=== PATIENT | male | born 1950 | race Caucasian/White ===

== ENCOUNTER 2016-11-07 14:47 | Observation (INO) | payer MEDICARE ==
[~2016-11-07] VITALS: Ht 185.4 cm; Wt 83.4 kg
[~2016-11-07 14:47] MED LIST: AGM875T PO; ATOR10TA66 PO; HYDR-4003 PO; LAN125 PO; LEVA1.2523 NEB; LISI2.5T PO; LIT300 PO; METO25TA6 PO; NEBU-145 NEB; SYMINH INHALATION; TIOT18CA3 IH
[2016-11-07 14:51] VITALS: BP 164/99; PULSE 79; RESP 20; O2SAT 98
[2016-11-07 16:48] VITALS: BP 173/107; PULSE 54; RESP 20; O2SAT 98
--- NOTE | 2016-11-07 17:06 | DRSVH ---
PROCEDURE: CT BRAIN WITHOUT CONTRAST ([id number]) INDICATIONS: STROKE SYPTOMS FOR A WEEK TECHNIQUE: Noncontrast 4.5 mm thick angled axial sections acquired from the foramen magnum to the vertex, with c oronal reformats. COMPARISON: None. FINDINGS: Image quality: Excellent. CSF spaces: Basal cisterns are patent. No extra-axial fluid collections. Ventricles are normal in size and shape. Brain: No midline shift. No intracranial masses or hemorrhage. Jaquez-white matter interface is norm al. Skull and face: Calvarium and visualized facial bones are intact, without suspicious lesions. Sinuses: Visualized sinuses demonstrate ethmoid mucosal thickening. IMPRESSION: 1. No acute intracranial process. Dictated by: Marta Boykin M.D. on 11/07/2016 at 17:03 Approved by: Marta Boykin M.D. on 11/07/2016 at 17:04
[2016-11-07 17:27] LABS: BASOPHILS % (AUTO) 0.5 % (0-3); EOSINOPHILS % (AUTO) 1.2 % (0-5); MONOCYTES % (AUTO) 8.4 % (4-12); Mean Corpuscular Hemoglobin 32.3 pg (27.0-35.0); Mean Corpuscular Volume 93.1 fL (81-100); NEUTROPHILS % (AUTO) 68.8 % (40-74); Platelet Count 354 bil/L (150-400)
--- NOTE | 2016-11-07 17:42 | ED.REPORT ---
HPI-Stroke / CVA Nov 07, 2016 ED Provider: Karan Suresh MD History of Present Illness: OCC This is a 65 year old male with a history of COPD, HTN, bipolar disorder presenting to the emergency department from urgent care complaining of head pressure that began one month ago but worsened 2 days ago. Associated symptoms that began one month ago include bilateral tinnitus, episodic slurred speech, numbness and weakness is localized to left side face, upper, and lower extremities, causing balance issues resulting in a GLF yesterday. Describes gradually worsening headache and "pressure" in arms and legs. Denies recent trauma, fever, chills, change LOC, nausea, vomiting, or diaphoresis. Nursing Notes Stated Complaint: SPEECH CHANGE/HEAD NUMB Chief Complaint: Neuro Symptoms/ Deficits Nursing Notes Reviewed: Yes (ERPLY, [employer] not reconciled) Allergies: Coded Allergies: codeine (Verified Allergy, Intermediate, Nausea,Vomiting, 11/07/16) cortisone (Verified Allergy, Intermediate, Rash, 11/07/16) No Known Allergies (Verified Allergy, Unknown, 05/31/16) Scheduled Atorvastatin Calcium (Atorvastatin Calcium) 10 Mg Tablet 10 MG PO HS Budesonide/Formoterol 160-4.5 mcg Inh (Symbicort 160-4.5 mcg Inh) 60 Puff/6.9 Gm Inhaler 2 PUFF INHALATION BID Clindamycin (Clindamycin) 300 Mg Capsule 300 MG PO tid x 10 days (Reported) Digoxin (Digoxin) 250 Mcg Tablet 250 MCG PO DAILY (Reported) Lisinopril (Lisinopril) 2.5 Mg Tablet 2.5 MG PO DAILY Metoprolol Succinate ER (Metoprolol Succinate ER) 25 Mg Tab.er.24h 25 MG PO DAILY (Reported) Potassium Chloride (Potassium Chloride) 10 Meq Capsule.er 10 MEQ PO DAILY ( Reported) TAKE WITH FOOD Tiotropium Chamberlain (Spiriva) 18 Mcg Cap.w.dev 18 MCG IH DAILY (Reported) Scheduled PRN Albuterol Sulfate (Ventolin HFA Inhaler) 200 Puff/18 Gm Inhaler 2 PUFF INH Q4 PRN PRN For Shortness of Breath (Reported) Levalbuterol HCl (Xopenex Concentrate) 1.25 Mg/0.5 Ml Vial.neb 1.25 MG IH QID PRN PRN For Shortness of Breath (Reported) General Time Seen by Provider: 17:41 Chief Complaint Weakness Hx Obtained From: Patient Arrived By: Ambulance Time last known well - Sudden in Onset?: No Symptom Duration: More than a week... Progression Since Onset: Waxes and wanes, Resolved (not present at moment) Severity: Current: No pain currently Pertinent Negative: Pt denies other symptoms Recent Healthcare: No recent hospitalization, Recent doctor visit Similar Sx Previous: No Risk Factors )( TPA Administration/Criteria Stroke Thrombolytic Therapy : TPA Administered Intravenously: No, not indicated NIH Stroke Scale Level of Consciousness: Alert and responsive (0) Ask Month & Age: Both questions right (0) Open/Close Eyes/Hand [employer]: Performs both tasks (0) Horizontal EO Movements: None (0) Visual Wood: No visual loss (0) Facial Palsy: Normal symmetry (0) Right Arm Motor Drift (10s): No drift 10 sec (0) Left Arm Motor Drift (10s): No drift 10 sec (0) Right Leg Motor Drift (5s): No drift 5 sec (0) Left Leg Motor Drift (5s): No drift 5 sec (0) Limb Ataxia FNF/Heel-Campos: No ataxia (0) Sensation (Arms/Legs/Face): No sensory loss (0) Language Aphasia: No aphasia, normal (0) Dysarthria: No dysarthria, normal (0) Extinction/Inattention: No exctinct/inattent (0) NIHSS Score: 0 Time NIHSS Performed: 17:50 Date NIHSS Performed: Nov 07, 2016 Past Medical History Past Medical History 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, 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, status post AICD placement 2013, no valvular disease Severe persistent asthma Hypertension Allergic rhinitis ADHD Bipolar disorder History of severe sepsis due to Pseudomonas pneumonia History of ventricular fibrillation cardiac arrest in 2013 Anxiety Bipolar Disorder ho paroxysmal Atrial Fibrillation Reports: COPD, Hyperlipidemia Reports: Atrial fibrillation Past Surgical History AICD Family History Noncontributory Smoking History Former Smoker Social History Alcohol Use: In recovery Drug Use: Denies drug use Other Social History: Good social support, Local resident Ambulatory Status Independent Review of Systems Constitutional: Denies: Chills, Fever Respiratory: Denies: Non-productive cough Cardiovascular: Denies: Chest pain GI: Denies: Abdominal pain, Nausea, Vomiting Musculoskeletal: Denies: Back pain Neurologic: Reports: Headache, Numbness, Weakness, Denies: Change LOC, Lightheaded, Syncope Complete sys rev & neg: except as marked. Physical Exam Initial Vital Signs Vital Signs (First) Date Time Temp Pulse Resp B/P Pulse Ox O2 Delivery O2 Flow Rate FiO2 11/07/16 14:51 36.2 79 20 164/99 98 Room Air Initial VS: Reviewed, Vital signs abnormal (mod HTN) ENT: Mucous membranes moist, Conjunctiva normal, No scleral icterus Abdomen / GI: Soft, Non-tender, No guarding, No rebound, No distention Extremities: Vascular intact, Neuro intact, No swelling, No tenderness Skin: Warm, Dry, No cyanosis Psychiatric: Mood/affect normal, Behavior normal, Normal thought content General/Constitutional: Awake, Alert, No acute distress Behavior: Positive: Anxious Denies EtOH Head / Eyes: PERRL, EOMI Neck: Supple, Full range of motion, No swelling, Non-tender, No carotid bruit Respiratory / Chest: Breath sounds NL, Breath sounds = bilat, No respiratory distress, No rales, No rhonchi, No wheezing Cardiovascular: Heart rate NL, Regular rhythm, Heart sounds NL, No murmurs, Peripheral circulation NL Neurologic: Oriented X3, Speech NL, No motor deficits, No sensory deficits, CN II - XII intact, Reflexes equal bilat, Cerebellar NL Able to ambulate but other person present in the room states he has episodic speech deficits and ataxia, this is not witnessed at present. Interpretation & Diagnostics Interpretation & Diagnostics: HEAD CT IMPRESSION: 1. No acute intracranial process. Dictated by: Marta Boykin M.D. on 11/07/2016 at 17:03 Approved by: Marta Boykin M.D. on 11/07/2016 at 17:[address] ANGIOGRAPHY: Anterior circulation: Within the constraints of the study as discussed above no abnormality was seen but suboptimal visualization due to reduced contrast enhancement renders accurate diagnosis quite limited. Posterior circulation: Accuracy of visualization is limited by reduced degree of contrast enhancement. NECK CT ANGIOGRAPHY: IMPRESSION: As noted above the quality of visualization is quite limited, and accurate diagnosis for presence or absence of dissection also would be quite limited. Depending on the clinical status followup by either repeat CT angiogram or MR scanning may be warranted. Dictated by: Yasir Yu M.D. on 11/07/2016 at 21:52 Approved by: Yasir Yu M.D. on 11/07/2016 at 21:58 Lab Results Interpretation Result Diagram: 11/07/16 1518 11/07/16 1518 Test 11/07/16 15:18 White Blood Count 9.5th/mm3 (3.8-10.1) Red Blood Count 5.07mil/mm3 (4.40-5.80) Hemoglobin 16.4g/dL (13.8-17.2) Hematocrit 47.2% (41.0-50.0) Mean Corpuscular Volume 93.1fL (81-100) Mean Corpuscular Hemoglobin 32.3pg (27.0-35.0) Mean Corpuscular Hemoglobin Concent 34.7% (32.0-37.0) Red Cell Distribution Width 13.8% (12.3-15.4) Platelet Count 354bil/L (150-400) Neutrophils (%) (Auto) 68.8% (40-74) Lymphocytes (%) (Auto) 21.0% (14-46) Monocytes (%) (Auto) 8.4% (4-12) Eosinophils (%) (Auto) 1.2% (0-5) Basophils (%) (Auto) 0.5% (0-3) Prothrombin Time 11.3sec (8.1-12.5) Prothromb Time International Ratio 1.05ratio Activated Partial Thromboplast Time 28.2sec (22.8-33.0) Sodium Level 139mEq/L (134-144) Potassium Level 4.4mEq/L (3.5-5.2) Chloride Level 99mEq/L (97-108) Carbon Dioxide Level 23mmol/L (18-29) Blood Urea Nitrogen 7mg/dL (8-27) Creatinine 0.63mg/dL (0.76-1.27) Estimat Glomerular Filtration Rate 136mL/min (>59) Glucose Level 93mg/dL (60-99) Calcium Level 9.2mg/dL (8.5-10.1) Total Bilirubin 0.7mg/dL (0.0-1.2) Aspartate Amino Transf (AST/SGOT) 18U/L (0-50) Alanine Aminotransferase (ALT/SGPT) 9U/L (0-44) Alkaline Phosphatase 69U/L (25-160) Troponin T < 0.010ug/L (0.0-0.011) Total Protein 7.6g/dL (6.4-8.4) Albumin 4.6g/dL (3.4-5.0) Hold Vences Top Tube Received (Received) Digoxin Level 0.3nG/mL (0.9-2.0) [place] Level 0.1mEq/L (0.5-1.5) Lab Results Interpretation: CBC normal CMP normal ECG Interpretation ECG Interpretation: Sinus rhytjm with 1st degree heart block Q waves anteriorly Nonspecific t-wave inversions in V6 rate is improved since prior, no longer in a-fib/flutter Time: 18:23 Interpreted by: ED physician Re-Eval/Medical Decision Med Decision/Clinical Course This is a 65-year-old male who presents with a chief complaint of facial with difficulty with speech slurring of speech and word finding, as well as difficulty with gait and ambulation. He has a constellation of vague symptoms that he reports started several weeks ago, and included tenderness, a pressure headache, and just feeling poorly. He reports he seen several doctors and was told at one point that it was nothing and should resolve, but states that it did not-he was treated once with antibiotics, but did not improve. Sensitivity were super tonight complaining that over the past week that he has had significant problems intermittently with word finding and speech-as well as difficulties with ambulation. He is here with a second individual who confirms witnessing these episodes. On exam the patient's awake alert and appropriate. Out in a stroke scale testing I do not appreciate any difficulties with speech, and he passes all components of this language evaluation without difficulty. Additionally in the department, he has a negative Romberg, he is able to ambulate to heel to toe without overt findings. Her records indicate multiple risk factors-his last visit was for atrial fibrillation, he is not anticoagulated, but he is not currently in atrial fibrillation on the time of ED evaluation. He has also had a history of V. fib , cardiomyopathy with records indicating a significant component of alcohol, although reports she has been sober now for some time. He has a low EF. In other words the patient has multiple complex comorbidities which would increase the risk for potential stroke or embolism, and certainly describes a concerning story-even though his neurologic exam in the department has not clearly focal. Noncontrast head CT was negative. EKG revealed no dysrhythmia. Blood work was normal. I do not appreciate overt signs of evident bacterial infection, per records do indicate a history of dental infection, but the patient does not demonstrate clinical signs of an active infection, brain abscess, meningitis clinically I would think to be clearly evident if that was the cause is a traumatic focal left with deficits over such a period as a week. Due to the history of cardiomyopathy with ventricular fibrillation the patient has an AICD, he has a very low EF-and the AICD prohibits MRI imaging for further diagnostic evaluation. I discussed the case with the on-call neurologist and the plan is admission for continued stroke evaluation, with the plan to obtain a CT angiogram, as well as an echocardiogram as part of his evaluation. And neurology will see him tomorrow. The case is discussed with the hospitalist. Source of Hx: Old records Re-Evaluation/Progress : Time of Eval: 20:40 Re-Evaluation/Progress Note: Discussed need for admission, all questions addressed. Consultation #1: Referral / Consult Name: Sanjuana Galvan MD Consulted With: Neurology Call Returned at: 20:17 Mud Jack Operator: Will see patient, Agrees with eval, Agrees with plan Note: Recommends CTA and admit Consultation #2: Referral / Consult Name: Dedra Virgen DO Consulted With: Hospitalist Call Returned at: 20:50 Mud Jack Operator: Accepts admit Counseled Regarding: Diagnosis, Lab results, Need for follow-up, Need for admission Patient Discharge & Departure Impression: Primary Impression: CVA (cerebral vascular accident) CVA mechanism: unspecified Qualified Code: I63.9 - Cerebral infarction, unspecified Additional Impressions: Ataxia Transient neurological symptoms History of cardiomyopathy History of atrial fibrillation Disposition: ADMITTED TO HOSPITAL Discharge Condition All VS Reviewed: Yes Condition: Stable Referrals: Geovanny Jimenez DO (PCP) Scribe Attestation Portions of this note were transcribed by Eliane Madrid. I, Dr. Suresh personally performed the history, physical exam and medical decision-making; I reviewed and confirmed the accuracy of the information in the transcribed note. Signed by: lulu Robert. 11/07/2016, 23:30. Karan Suresh MD Nov 07, 2016 17:42 ELIANE MADRID Nov 07, 2016 17:43
[2016-11-07 17:47] LABS: INR 1.05 ratio
[2016-11-07 17:52] LABS: TROPONIN T < 0.010 ug/L (0.0-0.011)
[2016-11-07 19:52] VITALS: BP 130/87; PULSE 79; O2SAT 94
[2016-11-07] MEDS ORDERED: Ondansetron 2 mg/mL 2 mL Inj IV PRN (20:55)
[2016-11-07] MEDS ORDERED: Alum-Mag Hydrox-Simeth 30 mL Suspension PO PRN (20:55)
[2016-11-07] MEDS ORDERED: Polyethylene Glycol (PEG) 17 Gm Powder PO PRN (20:55)
[2016-11-07] MEDS ORDERED: DIGO250T72 PO (21:07)
[2016-11-07] MEDS ORDERED: CLIN-78 PO (21:07)
[2016-11-07] MEDS ORDERED: ALBU18HF INH (21:07)
[2016-11-07] MEDS ORDERED: POTA10CA42 PO (21:07)
[2016-11-07] MEDS ORDERED: METO25TA99 PO (21:07)
[2016-11-07] MEDS ORDERED: LEVA1.2523 IH (21:07)
[2016-11-07 21:42] VITALS: BP 146/78; PULSE 74; O2SAT 95
--- NOTE | 2016-11-07 21:58 | DRSVH ---
PROCEDURE: CT ANGIO HEAD AND NECK (P) INDICATIONS: CVA (requested by Tim) ro dissection TECHNIQUE: Pre-contrast 4.5 mm thick sections acquired from the foramen magnum to the vertex. After the adminis tration of intravenous contrast, 1 mm thick sections acquired from the aortic arch through the [place]. Post-contrast 4.5 mm thick sections then re-acquired from the foramen magnum to the vert ex. 3-dimensional dwskzga-lciyppdjh-owrtmjfygw (MIP) and/or volume rendering reformats were acquired of the central intracranial vasculature and neck separately. For radiation dose reduction, the foll owing was used: automated exposure control, adjustment of mA and/or kV according to patient size. COMPARISON: None. FINDINGS: Image quality: Very limited by suboptimal phase of contrast enhancement due to intravenous line extra vasation of contrast at the initiation of the study. This resulted in delay in acquisition and reduc ed degree of contrast enhancement.. BRAIN: CSF spaces: Ventricles are normal in size and shape. Basal cisterns are patent. No extra-axial flu id collections. Brain: No midline shift. No intracranial bleeds or masses. Jaquez-white matter interface appears int act. Skull and face: Calvarium and facial bones appear intact, without suspicious lesions. Orbits appear normal. Sinuses: Sinuses and mastoids are clear. HEAD CT ANGIOGRAPHY: Anterior circulation: Within the constraints of the study as discussed above no abnormality was seen but suboptimal visualization due to reduced contrast enhancement renders accurate diagnosis quite li mited. Posterior circulation: Accuracy of visualization is limited by reduced degree of contrast enhancemen t. NECK CT ANGIOGRAPHY: Carotid system: The great vessels demonstrate a conventional anatomy as they arise from the aortic a rch. The origins of the common carotid arteries appear patent. The common carotid arteries demonstr ate normal caliber and courses. The bifurcation regions are both widely patent. Quality of visualiz ation however is significantly limited as noted above. Accurate diagnosis of presence of dissection would be very limited in this study, in my opinion. Posterior circulation: The origins of the vertebral arteries both appear widely patent. The more mcneill perior extracranial portions of both vertebral arteries are poorly visualized as noted above. Accura te diagnosis of presence or absence of dissection is not possible. Soft tissues: Visualized neck soft tissues demonstrate no suspicious abnormalities. Bones: No suspicious bony lesions. Visualized cervical spine appears normally aligned. IMPRESSION: As noted above the quality of visualization is quite limited, and accurate diagnosis for presence or absence of dissection also would be quite limited. Depending on the clinical status foll owup by either repeat CT angiogram or MR scanning may be warranted. Dictated by: Ysair Yu M.D. on 11/07/2016 at 21:52 Approved by: Yasir Yu M.D. on 11/07/2016 at 21:58
[2016-11-07 22:25] VITALS: BP 132/82; PULSE 65; RESP 20; O2SAT 95
[2016-11-07 22:42] VITALS: PULSE 76
--- NOTE | 2016-11-07 23:10 | PCM.HPMED ---
Subjective Date of Service Nov 07, 2016 Primary Provider: Admitting Physician: Bret Berg DO Primary Care Physician: Geovanny Jimenez DO Attending Physician: Bret Berg DO Chief Complaint: Multiple neurologic symptoms History of Present Illness: Patient is a 65-year-old male with history of COPD, heart failure with reduced ejection fraction status post AICD (single-chamber, [employer]), and reported history of multiple tooth extraction about a month ago who presents to the ER with complaint of multiple neurological complaints. Patient reports that she was seen by dentist approximately one month ago for multiple teeth extractions. He is given a short course of antibiotic (does not recall the name) at that time. A week ago (10/31/16) he went to an urgent care clinic with complaint of numbness of his head jaw and sinus area. At that time he was given a prescription for clindamycin (10 day course). He notes that this is not significantly changed his symptoms. He was seen at urgent care again today for several day complaint of tingling in his hands and his feet, weakness and instability in his lower extremities, and feeling like his speech is slurred. In addition to that he continues to have this migrating numbness of the of the head and face for the last month. He also reports tinnitus for the last month (started out on the left, but is now bilateral). He denies headache, vision change, difficulty swallowing, chest pain, difficulty breathing. He reports some very minimal nausea. He ran out of digoxin a day or 2 ago, but reports that he has been compliant with all other medications. He reports history of finding ticks on his body. He reports that in January 2016 ( at that time he had his V. fib arrest) his daughter found a tick on his left lateral torso. He reports that a month or 2 later he found another tick on his skin. He denies any rash currently, or in the last many months (or at the time they found the tick). He denies any arthralgias. In the ER CT noncontrast of the head was negative, and a CT angiogram of the head and neck was grossly negative (but limited significantly by suboptimal contrast due to extravasation at the time of administration. His EKG shows sinus rhythm with a prolonged MS interval (first degree AV block). His labs are largely unremarkable. And his vital signs are fairly stable (with the exception of some hypertension). The patient takes aspirin 162 mg daily at baseline. Patient is admitted under observation status with expected length of stay less than 2 midnights due to severity of presenting symptoms, risk of adverse event, and complexity of treatment plan. Comprehensive review of systems conducted and was negative except for the pertinent positives listed in history of present illness above. Allergies Coded Allergies: codeine (Verified Allergy, Intermediate, Nausea,Vomiting, 11/07/16) cortisone (Verified Allergy, Intermediate, Rash, 11/07/16) No Known Allergies (Verified Allergy, Unknown, 05/31/16) Home Medications Gui Valerio. [id number] 1950 11/07/2016 02:15 PM 1/03/04/2016 atorvastatin 10 mg tablet take 1 tablet by oral route every day 10/31/2016 clindamycin 300 mg capsule take 1 capsule by oral route every 8 hours for 10 days 03/04/2016 digoxin 250 mcg tablet take 1 tablet by oral route every day 02/18/2016 levalbuterol 1.25 mg/0.5 mL solution for nebulization use 1.25 mg neb four times a day 03/04/2016 lisinopril 2.5 mg tablet take 1 tablet by oral route every day metoprolol succinate ER 25 mg tablet,extended release 24 hr take 1 tablet by oral route once a day potassium chloride ER 10 mEq capsule,extended release take 1 capsule by oral route every day with food 08/24/2016 Spiriva with HandiHaler 18 mcg and inhalation capsules INHALE THE CONTENTS OF 1 CAPSULE VIA HANDIHALER EVERY DAY 10/22/2015 Symbicort 160 mcg-4.5 mcg/actuation HFA aerosol inhaler inhale 2 puff by INHALATION route every day morning and evening 01/14/2016 Ventolin HFA 90 mcg/actuation aerosol inhaler inhale 2 puff by inhalation route every 4 - 6 hours as needed PMH Severe nonischemic myopathy, 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 Severe global hypokinesis. Severe LA enlargement; moderate RA enlargement. There is moderate central MR; Pacing lead is traversing the tricuspid valve; there is trace associated TR. Compared to prior study 05/19/2015 EF is less dynamic, down from 30-35% to 15-20% . LV is more dilated; end - diastolic dimension alfredo from 6 cm to 6.4 cm. Severe persistent asthma, question of COPD given his extensive smoking history, and current use Hypertension Allergic rhinitis ADHD Bipolar disorder History of severe sepsis due to Pseudomonas pneumonia History of ventricular fibrillation cardiac arrest in 2013 Tobacco dependence Surgical History AICD placement 2013 Family History Reports that his mom secondary to COPD complications Father due to cardiac complications (he had an NM) apparently he was in his 60s Grandparent (unclear on which) also had myocardial infarction in his 70s Social History Hx Alcohol Use: Yes (one case of beer per day prior to 03/27/2014) Hx Substance Use: No Hx Tobacco Use: Yes (1 pack per day since the age of 19 (period of cessation of approximately 15 years), but current now. 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 He reports that he has been all over the [place] in [facility]. His only report of finding ticks on his person were in the last year as noted in the history of present illness. Exam Vital Signs Vital Sign - Last Date Time Temp Pulse Resp B/P Pulse Ox O2 Delivery O2 Flow Rate FiO2 11/07/16 21:42 36.8 74 146/78 95 Room Air 11/07/16 16:48 20 Exam General: Alert, Oriented X3, Cooperative, No Acute Distress Head: Normocephalic, atraumatic. External ears normal. Eyes: PERRLA, EOMI. Anicteric sclerae. Conjunctiva are not injected Mouth: Mouth Normal, Mucous Membranes Moist/[place]. Patient is edentulous Neck: Neck supple with full range of motion. No Thyromegaly. Chest & Lungs: Inspiratory and expiratory mild wheezing throughout. Otherwise no rales or rhonchi. Normal respiratory effort. Cardiovascular: Regular Rate/Rhythm, Normal S1, Normal S2, No Murmurs/Rubs/ Gallops appreciated (though it is somewhat difficult to appreciate any heart tones). Radial pulses and posterior tibial pulses are 2+ bilaterally. There is no carotid bruit. Abdomen: Non-tender, Non-distended, No masses, Normoactive bowel tones, Soft Musculoskeletal: Normal Range of Motion Extremities: No cyanosis/clubbing/edema bilat Neurological: Grossly Neurologically Intact, Cranial Nerves 2-12 Intact, Normal Speech, Strength Normal 4/4 ext, Sensation minimally deficient in the left cheek per patient report to soft touch, Cerebellar Function nl Finger-Nose normal, Cerebellar Function nl Heel-Campos normal, Reflexes Normal Psych: Normal mood and affect. Thought process and content intact. Lab and Diagnostics Labs Labs are grossly normal Digoxin level is low at 0.3 [place] level is low at 0.1 Result Diagram: 11/07/16 1518 11/07/16 1518 X-Rays, CTs and MRIs Date of Service: 11/07/16 1456 PROCEDURE: CT BRAIN WITHOUT CONTRAST ([id number]) IMPRESSION: 1. No acute intracranial process. Dictated by: Marta Boykin M.D. on 11/07/2016 at 17:03 Date of Service: 11/07/162022 PROCEDURE: CT ANGIO HEAD AND NECK (P) FINDINGS: Image quality: Very limited by suboptimal phase of contrast enhancement due to intravenous line extravasation of contrast at the initiation of the study. This resulted in delay in acquisition and reduced degree of contrast enhancement.. BRAIN: CSF spaces: Ventricles are normal in size and shape. Basal cisterns are patent. No extra-axial fluid collections. Brain: No midline shift. No intracranial bleeds or masses. Jaquez-white matter interface appears intact. Sinuses: Sinuses and mastoids are clear. HEAD CT ANGIOGRAPHY: Anterior circulation: Within the constraints of the study as discussed above no abnormality was seen but suboptimal visualization due to reduced contrast enhancement renders accurate diagnosis quite limited. Posterior circulation: Accuracy of visualization is limited by reduced degree of contrast enhancement. NECK CT ANGIOGRAPHY: Carotid system: The great vessels demonstrate a conventional anatomy as they arise from the aortic arch. The origins of the common carotid arteries appear patent. The common carotid arteries demonstrate normal caliber and courses. The bifurcation regions are both widely patent. Quality of visualization however is significantly limited as noted above. Accurate diagnosis of presence of dissection would be very limited in this study, in my opinion. Posterior circulation: The origins of the vertebral arteries both appear widely patent. The more superior extracranial portions of both vertebral arteries are poorly visualized as noted above. Accurate diagnosis of presence or absence of dissection is not possible. IMPRESSION: As noted above the quality of visualization is quite limited, and accurate diagnosis for presence or absence of dissection also would be quite limited. Depending on the clinical status followup by either repeat CT angiogram or MR scanning may be warranted. Dictated by: Yasir Yu M.D. on 11/07/2016 at 21:52 12-lead ECG Sinus rhythm with rate within normal limits. First-degree AV block, QTC is 474 , and borderline left bundle branch block. Otherwise no ST or T-wave changes consistent with ischemia Cardiac Echo Impressions See past medical history Assessment & Plan Patient is a 65-year-old male with history of COPD, heart failure with reduced ejection fraction status post AICD (single-chamber, [employer]), and reported history of multiple tooth extraction about a month ago who presents to the ER with complaint of multiple neurological complaints. #1 multiple neurologic symptoms concerning for stroke. Present on admission -TIA less likely as his symptoms have persisted longer than 24 hours -Thus far CT imaging is been negative for acute disease. * Please note that the CT angiogram of the head and the neck was a limited study , and he may benefit from repeat contrast scan in the coming days -Patient does not have history of atrial fibrillation, and no new murmurs appreciated on exam making an embolic etiology less likely. -Thrombotic is certainly a possibility. -No indication of dissection on imaging -Vasculitis is a possibility in this gentleman. -Given his exposure to ticks, and reported peripheral neuropathy, consider Lyme * Subjective neurocognitive symptoms alone are not an indication for Lyme testing per the IDSA * At this time we will hold off on any serologic testing, but could consider in the future. -This presentation is somewhat difficult to assess and localize. -We will check a lipid panel -We will continue to follow his labs closely -We will do every 4 hours neuro checks -We will assess with echocardiogram in the morning with bubble study -Permissive hypertension with a goal to keep the systolic less than 180 -We are not able to perform MRI in this gentleman given his implanted cardiac device -We will continue his aspirin -Dr. 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 Chronic conditions: Hypertension Allergic rhinitis ADHD Bipolar disorder PRN MEDICATIONS - Acetaminophen as needed for mild pain/fever/headache - Bowel regimen as needed - Antiemetic as needed Patient is admitted under observation status with expected length of stay less than 2 midnights due to severity of presenting symptoms, risk of adverse event, and complexity of treatment plan. Pain Evaluation: Adequate Pain Control GI Prophylaxis: Not indicated VTE Prophylaxis: Sub-Q Heparin (Unfractionated) Resuscitation Status: CPR: Attempt Resuscitation Attending Statement The patient was seen and examined together with house staff on 11/07/2016 and I agree with the history, exam and plan as outlined in the note above. copies to: Geovanny Jimenez Collin T DO Nov 07, 2016 23:10 Dedra Virgen DO Nov 08, 2016 04:30
[2016-11-07] MEDS ORDERED: Levalbuterol 1.25 mg/0.5mL Inhalation Solution INHALATION PRN (23:45)
[2016-11-07 23:55] LABS: APPEARANCE,URINE CLEAR (CLEAR,HAZY); COLOR,URINE YELLOW (YELLOW); OCCULT BLOOD,URINE NEGATIVE (NEGATIVE); UROBILINOGEN,URINE NORMAL (NORMAL)
[2016-11-08] VITALS (9 sets, daily range): BP systolic 101–126; BP diastolic 60–80; PULSE 60–84; RESP 16–18; O2SAT 90–97
[2016-11-08] MEDS: Albuterol 2.5 mg/3 mL Inhalation Solution NEB PRN ×2 (04:23→20:40)
--- NOTE | 2016-11-08 05:02 | NUR ---
Ad[place] [facility] [place] phone report from ED at 2124, pt arrived to floor per angie at 2216 accompanied by color laboratory technician, able to ambulate to bed, pt alert/oriented, noted slight unsteady gait, vitals taken, 02 spot check on high 80;s, pt placed on 02 at 2l/min, 2 RN skin check done with Kristian Burt, unremarkable, pt denies pain/discomfort, pt on continuous tele monitor, gilberto alarm placed for safety r/t hx of falls, oriented pt to room and call light, qhrly checks done throughout night.
[2016-11-08 06:16] LABS: BASOPHILS % (AUTO) 0.6 % (0-3); EOSINOPHILS % (AUTO) 2.5 % (0-5); MONOCYTES % (AUTO) 10.8 % (4-12); Mean Corpuscular Hemoglobin 31.8 pg (27.0-35.0); Mean Corpuscular Volume 93.8 fL (81-100); NEUTROPHILS % (AUTO) 63.2 % (40-74); Platelet Count 331 bil/L (150-400)
--- NOTE | 2016-11-08 07:57 | NUR ---
Repeat CT angio Request made to Dr Hester for Dr Galvan for repeat CT angio as images didn't come out well and needs to be repeated. Addendum: 11/08/16 at 0842 by BRIGIDO ONEILL RN Called Dr Hester cell phone requesting re-order of CT scan, left message.
[2016-11-08] MEDS: Fluticasone-Salmererol 250-50 Inhaler INHALATION SCH ×2 (08:30→20:49)
[2016-11-08] MEDS: Tiotropium 18mcg/Cap 5 Capsule Inhaler Kit INHALATION SCH (08:30)
[2016-11-08] MEDS: MeTOProlol XL 25 mg ER24 Tablet PO SCH (08:30)
--- NOTE | 2016-11-08 09:13 | NUR ---
Ind Pt worked with OT. Therapist stated he did great. Also going to call ST and try and move him up list so he can have breakfast. Pt complaining about being hungry. VS stable. A&O x 4. Addendum: 11/08/16 at 1404 by JACIEL PORRAS RN Pt becoming inpatient for CT, ECHO exams to be done. Both departments were called to see if they could get him in yet. They both said no, they would get to him when they can. Pt also stated he wanted a NEB treatment. Dr Hester was paged with this request. Addendum: 11/08/16 at 1548 by JACIEL PORRAS RN Pt stated he will leave [facility] after his ECHO test is done, if CT cannot get to him right away. Addendum: 11/08/16 at 1647 by JACIEL PORRAS RN Pt to CT Addendum: 11/08/16 at 1652 by JACIEL PORRAS RN Spoke with Dr Hester. He is not planning on DC'ing pt until tomorrow morning. He needs to speak with the Neurologist about his CT scan results before he can safely DC pt.
--- NOTE | 2016-11-08 09:19 | CONS ---
[address] [address] CONSULTATION REPORT PATIENT: JUDI JACOBSON : 1950 MR#: [id number] ADMIT: 11/07/2016 JOB ID: [id number] DATE OF SERVICE: 11/08/2016 NEUROLOGY CONSULTATION: REQUESTING PHYSICIAN: Dr. Karan Suresh for possible TIA or stroke. HISTORY OF PRESENT ILLNESS: The patient is a 65-year-old gentleman with history of nonischemic cardiomyopathy, with ejection fraction of 15%-20% and intraventricular conduction delay followed by Cardiology, last seen by Dr. Keven Arriaza on October 31, 2016 with a plan to change ICD systems to biventricular ICD. This was delayed due to the patient's dental infection. At one point, he was thought to have an abscess but he reports he has been treated by his oral surgeon for infection which was recovering. He states that he came to the emergency department because of speech problems which he reports as slurring of his /s/ but no aphasia. This was transient and had occurred for the first time. He has been seen in urgent care multiple times recently for headache, jaw pain and most recently before coming to the emergency department, what was referred to as mental status changes. He reports that he felt "weak" somehow with migrating sensory changes on his face primarily around his mouth. He denies any symptoms now and in the emergency department his neurologic examination was negative. I was called by Dr. Suresh with a report of bilateral tinnitus, episodic slurred speech, numbness, tingling, weakness. Upon discussion with the patient, it appears he has had transient weakness in the lower extremities as well. Although the chart notes suggest he may have had paroxysmal atrial fibrillation, the cardiology note does not support this. I recommended CT angio which was completed last night, was thought to be suboptimal and not repeated yet. The patient denies any stroke symptoms in the past. He reports that he is a recovering alcoholic and quit drinking because of the cardiomyopathy at his critical care physician assistant's recommendation about two years ago. He does continue to smoke cigarettes. Hospitalization was recommended to evaluate for stroke. I have personally reviewed the head CT that does not show evidence of stroke. Unfortunately because of his implantable device, he cannot have an MRI. This morning he states that he feels well and wants to go home. He lives in [place] and he needs to arrange for travel. He has no symptoms this morning. REVIEW OF SYSTEMS: Is as per the history of present illness. The patient reports no complaints except that he is hungry. All other systems were reviewed and reported as negative. OUTPATIENT MEDICATIONS: 1. Levalbuterol. 2. Metoprolol. 3. Lisinopril. 4. Digoxin. 5. Atorvastatin 10 mg. 6. Potassium chloride. 7. Clindamycin. 8. Spiriva. 9. Symbicort. 10. Ventolin. 11. The patient reports he also takes two 81 mg aspirin daily. INPATIENT MEDICATIONS: As above including melatonin and a nicotine patch. PHYSICAL EXAMINATION: The patient is neat and well groomed, resting comfortably in the bed. Appears older than his stated age. Temperature is afebrile. Blood pressure 109/66, pulse ox 96% on 2 L of oxygen. In the emergency department, the patient's blood pressure was 164/99 and 173/107. Telemetry monitoring shows sinus rhythm with occasional PVCs. Head: Normocephalic, atraumatic. No evidence of carotid bruits. Cardiac: Diminished heart sounds. S1-S2 present. No murmurs noted. Extremities: No edema or lesions. Skin warm to the touch. Neurologic examination: The patient is alert and oriented with language and speech intact and fluent. No evidence of memory impairment, recent and remote memory. However, his answers are slowed. Fund of knowledge evaluated and found to be intact. Mood appears euthymic. Cranial nerves: Pupils are equally reactive to light and accommodation. Extraocular movements intact. Funduscopic examination with crisp disk margins. No disk pallor. Visual torres intact to confrontation bilaterally. No facial asymmetry. Sensation intact on the face bilaterally. Tongue midline. Palate raises symmetrically. SCM and shoulder shrug, as well as hearing appear to be intact bilaterally. Deep tendon reflexes 1+ throughout with plantar reflex flexor. No Medina's noted. Sensation: Intact to pinprick, soft touch, vibration, proprioception upper and lower extremities. Coordination: Intact finger to nose, heel to ramsay, and rapid alternating movement upper and lower extremity. Gait: Deferred. Patient with SCDs. He walked in the ED without difficulty. IMAGING STUDIES: CT angio read as suboptimal visualization with recommendation to repeat the CT or MR angiogram. CT brain: No acute intracranial processes. LABORATORY STUDIES: CBC comprehensive metabolic panel without abnormality. LDL cholesterol 117. Digoxin 0.3. [place] 0.1. ASSESSMENT AND RECOMMENDATION: The patient is a 65-year-old gentleman with facial paresthesias, headache and transient inarticulate speech admitted through the emergency department due to worsening symptoms. The patient has been recovering from a dental abscess/infection. His neurologic examination does not show any focal abnormalities. Head CT is a limited way to look for stroke and no obvious stroke is apparent. The patient has numerous cardiovascular risks including global hypokinesis seen on his previous echocardiogram and possible history of cardiac arrhythmia. He is not on anticoagulation. Repeat echocardiogram was recommended and is still pending. The patient is also a cigarette smoker and has elevated cholesterol. I would recommend that if there is any evidence of atherosclerotic disease keeping LDL cholesterol less than 100, or however his critical care physician assistant recommends. He should be continued on the two 81 mg aspirin daily and good blood pressure control. Repeat the CT angiography to make sure there is no evidence of high-grade stenosis or dissection to explain his fluctuating symptoms. I would recommend contacting the patient's critical care physician assistant, Dr. Arriaza, regarding the results of the echocardiogram and any desire for anticoagulation. I cannot eliminate the possibility of tiny embolic stroke, hypoperfusion as a cause for his symptoms. I will followup the CT angio. He should have physical therapy, and if no problems with gait, ambulate freely without SCDs. My recommendations were reviewed with the patient. Thank you for this consultation. ADDENDUM: The patient was discussed with Dr. Arriaza. I advised him that echocardiogram and CT angiography were being completed. He confirmed that the patient does not have a history of atrial fibrillation. He did not feel there was a need for anticoagulation and that symptoms were related to his dental infection/abscess. He did not see a further need for anticoagulation but the patient should continue on aspirin and follow up with him after discharge for planned ICD replacement. Once the CT angiography and echocardiogram is reviewed the patient can be discharged home with the above recommendations. cc: Dr. Keven BOONE
--- NOTE | 2016-11-08 09:24 | NUR ---
Evaluation completed. Please go to "Notes" then click on "Assessments and Notes" (bottom left corner of screen). Then select appropriate discipline tab on top of screen.
--- NOTE | 2016-11-08 11:00 | NUR ---
Evaluation completed. Please go to "Notes" then click on "Assessments and Notes" (bottom left corner of screen). Then select appropriate discipline tab on top of screen.
--- NOTE | 2016-11-08 11:32 | NUR ---
Case Management: VAZ and Medicare Part D info provided and explained to pt at bedside at 11:08 am. Questions answered, copies given to pt and original VAZ placed on hard chart. BTAMRITZA alcocer RN
--- NOTE | 2016-11-08 11:36 | NUR ---
Evaluation completed. Please go to "Notes" then click on "Assessments and Notes" (bottom left corner of screen). Then select appropriate discipline tab on top of screen.
[2016-11-08] MEDS ORDERED: Albuterol-Ipratropium 3 mL Inhalation Solution NEB PRN (14:10)
--- NOTE | 2016-11-08 17:02 | NUR ---
Social Work Note: Attempted initial Assessment Data& Assessment: EMR reviewed. Gui Valerio is a 65 year old male under observation for cerebral vascular accident. Pt has [facility] Medicare insurance coverage and sees Dr. Jimenez for primary care. SW attempted to meet with pt at bedside to discuss discharge planning but pt was away for testing and would not be back until later this evening. SW to follow up with pt regarding initial assessment and discharge planning. Plan: Anticipated discharge home via POV when medically ready. SW to follow up with pt regarding initial assessment and discharge planning. DAVID Márquez
--- NOTE | 2016-11-08 17:55 | DRSVH ---
[facility] [address] [place] [address] Echocardiogram Report Name: JUDI JACOBSON HStudy Date: 11/08/2016 Beto t: 74 in Hospital Exam Location: [facility] Weigh t: 184 lb Gender: Male BSA: 2.1 m2 : 1950 Age: 65 yrs BP: 1 09/66 mmHg Reason For Study: CVA Ordering Physician: HOSPITALIST [facility] Performed By: Shweta Love Referring Physician: POLO BOWLING Interpretation Summary The left ventricle is normal in size. There is mild-moderate concentric left ventricular hypertrophy. The ejection fraction is estimated to be 45-50%. The posterior wall appears to thicken normally however there is significant dyssynchrony with delayed contraction of the posterior wall possibly due to the paced rhythm. Assessment of diastolic parameters indicates a relaxation abnormality of the left ventricle, consistent with normal filling pressures. Compared to the prior exam, left ventricular function is significantly improved. The IVC is of normal diameter and collapses greater than 50% with a sniff. This suggests a low right atrial pressure of 3 mm Hg. There is no significant valvular heart disease. No other echocardiographic abnormalities seen. No obvious etiology for the patients CVA identified on this exam. Procedure: A two-dimensional transthoracic echocardiogram with color flow and Doppler was performed. The study quality was technically adequate. Comparison is made with the echocardiogram of 02/03/16. A saline contrast injection was performed to assess for cardiac shunting. The patient was in normal sinus rhythm during the exam. Left Ventricle: The left ventricle is normal in size. There is mild- moderate concentric left ventricular hypertrophy. The ejection fraction is estimated to be 45-50%. Compared to the prior exam, left ventricular function is significantly improved. The posterior wall appears to thicken normally however there is significant dyssynchrony with delayed contraction of the posterior wall possibly due to the paced rhythm. Assessment of diastolic parameters indicates a relaxation abnormality of the left ventricle, consistent with normal filling pressures. Right Ventricle: The right ventricle is normal in size, thickness and function. There is a pacemaker lead in the right ventricle. Right ventricular systolic function is mildly reduced. Atria: There is mild biatrial enlargement. The interatrial septum is intact with no evidence for an atrial septal defect. Injection of contrast documented no interatrial shunt. Mitral Valve: The mitral valve is normal in structure and function. There is no mitral regurgitation noted. Aortic Valve: The aortic valve is normal in structure and function. No aortic regurgitation is present. Tricuspid Valve: The tricuspid valve is normal in structure and function. There is trace tricuspid regurgitation. Pulmonic Valve: The pulmonic valve is not well seen, but is grossly normal. There is no pulmonic valvular regurgitation. Great Vessels: The aortic root is mildly dilated. The ascending aorta is mildly enlarged. The aortic arch is normal in size. The pulmonary artery is not well visualized, but is probably normal size. The IVC is of normal diameter and collapses greater than 50% with a sniff. This suggests a low right atrial pressure of 3 mm Hg. Pericardium/ Pleura There is no pericardial effusion. There is no pleural effusion. MMode/2D Measurements & Calculations LVIDd: 4.8 cm LA dimension: 3.7 cm RA long axis: 4.8 cm Ao root diam LVIDs: 3.4 cm FS: 27.9 % LA A2 area: 24.1 cm RA area: 19.0 cm asc Aorta Diam IVSd: 1.1 cm LA A4 area: 19.6 cm RA vol: 64.3 ml LVPWd: 1.2 cm LA length (vol) RA : 30.9 ml/m2 Ao Arch Diam (Prox Trans): 3.1 cm LA vol: 79.8 ml LA vol index IVC diam: 1.8 cm EDV(MOD-sp2) LV warner. diameter/BSA LV sys. diameter/BSA RVD1 (basal) : 127.5 ml (cm/m^2): 2.3 (cm/m^2): 1.7 Doppler Measurements & Calculations Ao V2 max MV E max charanjit MV E/A: 0.78 TR max charanjit : 152.9 cm/sec : 65.3 cm/sec Med Peak E' Charanjit : 218.4 cm/sec Ao max PG MV A max charanjit TR max PG : 9.4 mmHg : 84.2 cm/sec E/E' med: 10.4 : 19.1 mmHg Ao mean PG MV P1/2t: 97.5 msec Lat Peak E' Charanjit PA V2 max : 6.2 mmHg : 93.1 cm/sec E/E' lat: 5.6 PA mean PG E/e' average: 8.0 MV A dur: 0.18 sec PA Accel Time : 0.12 sec MV dec time MV P1/2t max charanjit Ao V2 mean PA V2 mean : 0.34 sec : 120.6 cm/sec : 66.4 cm/sec Ao V2 VTI: 29.6 cm MVA(P1/2t): 2.3 cm2 Reading Physician:05:53 PM
--- NOTE | 2016-11-08 18:02 | DRSVH ---
PROCEDURE: CT ANGIO HEAD AND NECK (P) INDICATIONS: motor/sensory dysfunction with poor prior examn TECHNIQUE: Pre-contrast 4.5 mm thick sections acquired from the foramen magnum to the vertex. After the adminis tration of intravenous contrast, 1 mm thick sections acquired from the aortic arch through the [place]. Post-contrast 4.5 mm thick sections then re-acquired from the foramen magnum to the vert ex. 3-dimensional ofmrnpt-rprewjfvt-wcwbxqiyst (MIP) and/or volume rendering reformats were acquired of the central intracranial vasculature and neck separately. For radiation dose reduction, the foll owing was used: automated exposure control, adjustment of mA and/or kV according to patient size. COMPARISON: [facility], CT, CT ANGIO BRAIN AND NECK, 11/07/2016, 20:53. FINDINGS: Image quality: Excellent. BRAIN: CSF spaces: Ventricles are normal in size and shape. Basal cisterns are patent. No extra-axial flu id collections. Brain: No midline shift. No intracranial bleeds or masses. Jaquez-white matter interface appears int act. Skull and face: Calvarium and facial bones appear intact, without suspicious lesions. Orbits appear normal. Sinuses: Sinuses and mastoids are clear. HEAD CT ANGIOGRAPHY: Anterior circulation: Intracranial internal carotid arteries are normal in size and flow. The flow within the paired anterior cerebral arteries is normal and symmetric. The flow within the middle cer ebral arteries is normal and symmetric. The anterior communicating artery is seen. No aneurysms are seen. Posterior circulation: Visualized portions of the vertebral arteries demonstrate normal caliber, and join to form a normal appearing basilar artery. Flow within the posterior cerebral arteries is norm al and symmetric. No aneurysms are seen. NECK CT ANGIOGRAPHY: Carotid system: The great vessels demonstrate a conventional anatomy as they arise from the aortic a [facility]. The origins of the common carotid arteries appear patent. The common carotid arteries demonstr ate normal caliber and courses. Mild, approximately 10% focal stenosis of the origin of the right int ernal carotid artery. No definite left ICA stenosis Posterior circulation: The origins of the vertebral arteries both appear widely patent. The more mcneill perior extracranial portions of both vertebral arteries also demonstrate normal courses and calibers. They join to form a normal appearing basilar artery. Soft tissues: Visualized neck soft tissues demonstrate no suspicious abnormalities. Bones: No suspicious bony lesions. Straightening of the normal cervical lordosis. Minimal grade 1 an terolisthesis of C2 on C3.. IMPRESSION: Negative examination. No evidence of occlusion or dissection. Minimal 10% focal stenosis at the origin of the right internal carotid artery. Dictated by: Jorge Darden M.D. on 11/08/2016 at 17:54 Approved by: Jorge Darden M.D. on 11/08/2016 at 18:02
[2016-11-09 04:34] VITALS: BP 104/65; PULSE 54; RESP 17; O2SAT 98
--- NOTE | 2016-11-09 05:07 | NUR ---
HEADACHE Patient has c/o ongoing "head pressure" in the region of his face tonight. Somewhat relieved wtih tylenol, pressure returned after several hours. Up independently, no other complaints. VSS.
[2016-11-09 07:38] VITALS: BP 123/73; PULSE 69; RESP 18; O2SAT 96
[2016-11-09] MEDS: Fluticasone-Salmererol 250-50 Inhaler INHALATION SCH (07:41)
[2016-11-09] MEDS: Tiotropium 18mcg/Cap 5 Capsule Inhaler Kit INHALATION SCH (07:42)
[2016-11-09] MEDS: MeTOProlol XL 25 mg ER24 Tablet PO SCH (07:44)
--- NOTE | 2016-11-09 08:02 | PCM.DIMED ---
Discharge Instructions Date of Service Nov 09, 2016 Dates of Hospitalization Nov 07, 2016 at 20:49 Discharge Diagnosis Discharge Diagnosis TIA Medication Instructions - take medications as prescribed Test Results [facility] Diagnostic Imaging [place] [address] Patient Name: JUDI JACOBSON MR#: [id number] [place] [facility] [place]ing Phys: Augusto Hester MD Date of Service: 11/08/16 1024 PROCEDURE: CT ANGIO HEAD AND NECK (P) INDICATIONS: motor/sensory dysfunction with poor prior examn TECHNIQUE: Pre-contrast 4.5 mm thick sections acquired from the foramen magnum to the vertex. After the administration of intravenous contrast, 1 mm thick sections acquired from the aortic arch through the [place] of [place]. Post-contrast 4.5 mm thick sections then re-acquired from the foramen magnum to the vertex. 3- dimensional ookdlva-xjimttfhp-wtuawbzobs (MIP) and/or volume rendering reformats were acquired of the central intracranial vasculature and neck separately. For radiation dose reduction, the following was used: automated exposure control, adjustment of mA and/or kV according to patient size. COMPARISON: [facility], CT, CT ANGIO BRAIN AND NECK, 11/07/2016, 20: 53. FINDINGS: Image quality: Excellent. BRAIN: CSF spaces: Ventricles are normal in size and shape. Basal cisterns are patent. No extra-axial fluid collections. Brain: No midline shift. No intracranial bleeds or masses. Jaquez-white matter interface appears intact. Skull and face: Calvarium and facial bones appear intact, without suspicious lesions. Orbits appear normal. Sinuses: Sinuses and mastoids are clear. HEAD CT ANGIOGRAPHY: Anterior circulation: Intracranial internal carotid arteries are normal in size and flow. The flow within the paired anterior cerebral arteries is normal and symmetric. The flow within the middle cerebral arteries is normal and symmetric. The anterior communicating artery is seen. No aneurysms are seen. Posterior circulation: Visualized portions of the vertebral arteries demonstrate normal caliber, and join to form a normal appearing basilar artery. Flow within the posterior cerebral arteries is normal and symmetric. No aneurysms are seen. NECK CT ANGIOGRAPHY: Carotid system: The great vessels demonstrate a conventional anatomy as they arise from the aortic arch. The origins of the common carotid arteries appear patent. The common carotid arteries demonstrate normal caliber and courses. Mild, approximately 10% focal stenosis of the origin of the right internal carotid artery. No definite left ICA stenosis Posterior circulation: The origins of the vertebral arteries both appear widely patent. The more superior extracranial portions of both vertebral arteries also demonstrate normal courses and calibers. They join to form a normal appearing basilar artery. Soft tissues: Visualized neck soft tissues demonstrate no suspicious abnormalities. Bones: No suspicious bony lesions. Straightening of the normal cervical lordosis. Minimal grade 1 anterolisthesis of C2 on C3.. IMPRESSION: Negative examination. No evidence of occlusion or dissection. Minimal 10% focal stenosis at the origin of the right internal carotid artery. [facility] Diagnostic [place] [address] Patient Name: JUDI JACOBSON MR#: [id number] [place] [facility] [place] Ordering Phys: Marito Menendez DO Date of Service: 11/08/16 [address] [facility] [address] [place] [address] Echocardiogram Report Name: JUDI JACOBSON HStudy Date: 11/08/2016 Heigh t: 74 in Hospital Exam Location: [facility] Weigh t: 184 lb Gender: Male BSA: 2.1 m2 : 1950 Age: 65 yrs BP: 1 09/66 mmHg Reason For Study: CVA Ordering Physician: HOSPITALIST [facility] Performed By: Shweta Love Referring Physician: MARITO BOWLING Interpretation Summary The left ventricle is normal in size. There is mild-moderate concentric left ventricular hypertrophy. The ejection fraction is estimated to be 45-50%. The posterior wall appears to thicken normally however there is significant dyssynchrony with delayed contraction of the posterior wall possibly due to the paced rhythm. Assessment of diastolic parameters indicates a relaxation abnormality of the left ventricle, consistent with normal filling pressures. Compared to the prior exam, left ventricular function is significantly improved. The IVC is of normal diameter and collapses greater than 50% with a sniff. This suggests a low right atrial pressure of 3 mm Hg. There is no significant valvular heart disease. No other echocardiographic abnormalities seen. No obvious etiology for the patients CVA identified on this exam. Procedure: A two-dimensional transthoracic echocardiogram with color flow and Doppler was performed. The study quality was technically adequate. Comparison is made with the echocardiogram of 02/03/16. A saline contrast injection was performed to assess for cardiac shunting. The patient was in normal sinus rhythm during the exam. Left Ventricle: The left ventricle is normal in size. There is mild- moderate concentric left ventricular hypertrophy. The ejection fraction is estimated to be 45-50%. Compared to the prior exam, left ventricular function is significantly improved. The posterior wall appears to thicken normally however there is significant dyssynchrony with delayed contraction of the posterior wall possibly due to the paced rhythm. Assessment of diastolic parameters indicates a relaxation abnormality of the left ventricle, consistent with normal filling pressures. Right Ventricle: The right ventricle is normal in size, thickness and function. There is a pacemaker lead in the right ventricle. Right ventricular systolic function is mildly reduced. Atria: There is mild biatrial enlargement. The interatrial septum is intact with no evidence for an atrial septal defect. Injection of contrast documented no interatrial shunt. Mitral Valve: The mitral valve is normal in structure and function. There is no mitral regurgitation noted. Aortic Valve: The aortic valve is normal in structure and function. No aortic regurgitation is present. Tricuspid Valve: The tricuspid valve is normal in structure and function. There is trace tricuspid regurgitation. Pulmonic Valve: The pulmonic valve is not well seen, but is grossly normal. There is no pulmonic valvular regurgitation. Great Vessels: The aortic root is mildly dilated. The ascending aorta is mildly enlarged. The aortic arch is normal in size. The pulmonary artery is not well visualized, but is probably normal size. The IVC is of normal diameter and collapses greater than 50% with a sniff. This suggests a low right atrial pressure of 3 mm Hg. Pericardium/ Pleura There is no pericardial effusion. There is no pleural effusion. MMode/2D Measurements & Calculations LVIDd: 4.8 cm LA dimension: 3.7 cm RA long axis: 4.8 cm Ao root diam LVIDs: 3.4 cm FS: 27.9 % LA A2 area: 24.1 cm RA area: 19.0 cm asc Aorta Diam IVSd: 1.1 cm LA A4 area: 19.6 cm RA vol: 64.3 ml LVPWd: 1.2 cm LA length (vol) RA : 30.9 ml/m2 Ao Arch Diam (Prox Trans): 3.1 cm LA vol: 79.8 ml LA vol index IVC diam: 1.8 cm EDV(MOD-sp2) LV warner. diameter/BSA LV sys. diameter/BSA RVD1 (basal) : 127.5 ml (cm/m^2): 2.3 (cm/m^2): 1.7 Doppler Measurements & Calculations Ao V2 max MV E max charanjit MV E/A: 0.78 TR max charanjit : 152.9 cm/sec : 65.3 cm/sec Med Peak E' Charanjit : 218.4 cm/sec Ao max PG MV A max charanjit TR max PG : 9.4 mmHg : 84.2 cm/sec E/E' med: 10.4 : 19.1 mmHg Ao mean PG MV P1/2t: 97.5 msec Lat Peak E' Charanjit PA V2 max : 6.2 mmHg : 93.1 cm/sec E/E' lat: 5.6 PA mean PG E/e' average: 8.0 MV A dur: 0.18 sec PA Accel Time : 0.12 sec MV dec time MV P1/2t max charanjit Ao V2 mean PA V2 mean : 0.34 sec : 120.6 cm/sec : 66.4 cm/sec Ao V2 VTI: 29.6 cm MVA(P1/2t): 2.3 cm2 Reading Physician:05:53 PM Diet No restrictions Activity No restrictions Patient Instructions - follow up with your pcp as needed - bring discharge information with you to the store person Attending's Statement Discharge planning took less than 30 min Augusto Hester MD Nov 09, 2016 08:02
[2016-11-09] MEDS: Albuterol 2.5 mg/3 mL Inhalation Solution NEB PRN (09:46)
[2016-11-09 10:10] VITALS: PULSE 72
--- NOTE | 2016-11-09 11:55 | NUR ---
Discharge Pt. discharged to home at 1030 in stable condition. All belongings and instructions with pt. Inhalers sent home with pt. aware. IV and tele dc'd prior to discharge. Daughter driving pt. home.
--- NOTE | 2016-12-10 08:28 | PCM.DC.MED ---
Discharge Summary Date of Service Dec 10, 2016 Dates of Hospitalization Date of Hospital Admission Nov 07, 2016 at 20:49 Date of Discharge: Nov 09, 2016 Providers: Admitting Physician: Bret Berg DO Primary Care Physician: Geovanny Jimenez DO Attending Physician: Dedra Virgen DO Diagnosis at Time of Discharge Diagnosis at Time of Discharge TIA Consultations Neurology The patient is a 65-year-old gentleman with facial paresthesias, headache and transient inarticulate speech admitted through the emergency department due to worsening symptoms. The patient has been recovering from a dental abscess/ infection. His neurologic examination does not show any focal abnormalities. Head CT is a limited way to look for stroke and no obvious stroke is apparent. The patient has numerous cardiovascular risks including global hypokinesis seen on his previous echocardiogram and possible history of cardiac arrhythmia. He is not on anticoagulation. Repeat echocardiogram was recommended and is still pending. The patient is also a cigarette smoker and has elevated cholesterol. I would recommend that if there is any evidence of atherosclerotic disease keeping LDL cholesterol less than 100, or however his solar sales estimator recommends. He should be continued on the two 81 mg aspirin daily and good blood pressure control. Repeat the CT angiography to make sure there is no evidence of high- grade stenosis or dissection to explain his fluctuating symptoms. I would recommend contacting the patient's solar sales estimator, Dr. Arriaza, regarding the results of the echocardiogram and any desire for anticoagulation. I cannot eliminate the possibility of tiny embolic stroke, hypoperfusion as a cause for his symptoms. I will followup the CT angio. He should have physical therapy, and if no problems with gait, ambulate freely without SCDs. My recommendations were reviewed with the patient. Thank you for this consultation. ADDENDUM: The patient was discussed with Dr. Arriaza. I advised him that echocardiogram and CT angiography were being completed. He confirmed that the patient does not have a history of atrial fibrillation. He did not feel there was a need for anticoagulation and that symptoms were related to his dental infection/abscess. He did not see a further need for anticoagulation but the patient should continue on aspirin and follow up with him after discharge for planned ICD replacement. Once the CT angiography and echocardiogram is reviewed the patient can be discharged home with the above recommendations. Sanjuana Galvan MD 11/08/16 0811 . Procedures XRay, CTs & MRIs CT BRAIN WITHOUT CONTRAST IMPRESSION: 1. No acute intracranial process. Dictated by: Marta Boykin M.D. on 11/07/2016 at 17:03 CT ANGIO HEAD AND NECK (P) BRAIN: CSF spaces: Ventricles are normal in size and shape. Basal cisterns are patent. No extra-axial fluid collections. Brain: No midline shift. No intracranial bleeds or masses. Jaquez-white matter interface appears intact. Sinuses: Sinuses and mastoids are clear. HEAD CT ANGIOGRAPHY: Anterior circulation: Within the constraints of the study as discussed above no abnormality was seen but suboptimal visualization due to reduced contrast enhancement renders accurate diagnosis quite limited. Posterior circulation: Accuracy of visualization is limited by reduced degree of contrast enhancement. NECK CT ANGIOGRAPHY: Carotid system: The great vessels demonstrate a conventional anatomy as they arise from the aortic arch. The origins of the common carotid arteries appear patent. The common carotid arteries demonstrate normal caliber and courses. The bifurcation regions are both widely patent. Quality of visualization however is significantly limited as noted above. Accurate diagnosis of presence of dissection would be very limited in this study, in my opinion. Posterior circulation: The origins of the vertebral arteries both appear widely patent. The more superior extracranial portions of both vertebral arteries are poorly visualized as noted above. Accurate diagnosis of presence or absence of dissection is not possible. IMPRESSION: As noted above the quality of visualization is quite limited, and accurate diagnosis for presence or absence of dissection also would be quite limited. Depending on the clinical status followup by either repeat CT angiogram or MR scanning may be warranted. Dictated by: Yasir Yu M.D. on 11/07/2016 at 21:52 CT ANGIO HEAD AND NECK (P) IMPRESSION: Negative examination. No evidence of occlusion or dissection. Minimal 10% focal stenosis at the origin of the right internal carotid artery. Dictated by: Jorge Darden M.D. on 11/08/2016 at 17:54 . ECG 12 Lead Sinus rhythm with rate within normal limits. First-degree AV block, QTC is 474 , and borderline left bundle branch block. Otherwise no ST or T-wave changes consistent with ischemia Cardiac Echo Impression Interpretation Summary -The left ventricle is normal in size. -There is mild-moderate concentric left ventricular hypertrophy. -The ejection fraction is estimated to be 45-50%. -The posterior wall appears to thicken normally however there is significant dyssynchrony with delayed contraction of the posterior wall possibly due to the paced rhythm. -Assessment of diastolic parameters indicates a relaxation abnormality of the -left ventricle, consistent with normal filling pressures. -Compared to the prior exam, left ventricular function is significantly improved. -The IVC is of normal diameter and collapses greater than 50% with a sniff. -This suggests a low right atrial pressure of 3 mm Hg. -There is no significant valvular heart disease. No other echocardiographic abnormalities seen. No obvious etiology for the patients CVA identified on this exam. Reading Physician:05:53 PM . Invasive Procedures None Brief History From the H&P performed by Dr. Andrew Driscoll on 11/07/2016: Patient is a 65-year-old male with history of COPD, heart failure with reduced ejection fraction status post AICD (single-chamber, [employer]), and reported history of multiple tooth extraction about a month ago who presents to the ER with complaint of multiple neurological complaints. Patient reports that she was seen by dentist approximately one month ago for multiple teeth extractions. He is given a short course of antibiotic (does not recall the name) at that time. A week ago (10/31/16) he went to an urgent care clinic with complaint of numbness of his head jaw and sinus area. At that time he was given a prescription for clindamycin (10 day course). He notes that this is not significantly changed his symptoms. He was seen at urgent care again today for several day complaint of tingling in his hands and his feet, weakness and instability in his lower extremities, and feeling like his speech is slurred. In addition to that he continues to have this migrating numbness of the of the head and face for the last month. He also reports tinnitus for the last month (started out on the left, but is now bilateral). He denies headache, vision change, difficulty swallowing, chest pain, difficulty breathing. He reports some very minimal nausea. He ran out of digoxin a day or 2 ago, but reports that he has been compliant with all other medications. He reports history of finding ticks on his body. He reports that in January 2016 ( at that time he had his V. fib arrest) his daughter found a tick on his left lateral torso. He reports that a month or 2 later he found another tick on his skin. He denies any rash currently, or in the last many months (or at the time they found the tick). He denies any arthralgias. In the ER CT noncontrast of the head was negative, and a CT angiogram of the head and neck was grossly negative (but limited significantly by suboptimal contrast due to extravasation at the time of administration. His EKG shows sinus rhythm with a prolonged RI interval (first degree AV block). His labs are largely unremarkable. And his vital signs are fairly stable (with the exception of some hypertension). The patient takes aspirin 162 mg daily at baseline. Patient is admitted under observation status with expected length of stay less than 2 midnights due to severity of presenting symptoms, risk of adverse event, and complexity of treatment plan. Comprehensive review of systems conducted and was negative except for the pertinent positives listed in history of present illness above. . Hospital Course Patient is a 65-year-old male with history of COPD, heart failure with reduced ejection fraction status post AICD (single-chamber, [employer]), and reported history of multiple tooth extraction about a month ago who presents to the ER with complaint of multiple neurological complaints. #1 multiple neurologic symptoms concerning for stroke. 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 Exam Temperature 36.5, pulse 69, respiratory rate 18, blood pressure 123/73, pulse oximetry 96% on nasal cannula with 2 L oxygen. Exam Physical examination performed on day of discharge by Dr. Augusto Hester, but not recorded in electronic medical record. . Test 11/07/16 15:18 11/07/16 20:54 11/08/16 05:45 11/08/16 17:58 Prothrombin Time 11.3sec (8.1-12.5) Prothromb Time International Ratio 1.05ratio Activated Partial Thromboplast Time 28.2sec (22.8-33.0) Troponin T < 0.010ug/L (0.0-0.011) Hold Vences Top Tube Received (Received) Digoxin Level 0.3nG/mL (0.9-2.0) [place] Level 0.1mEq/L (0.5-1.5) Urine Color Yellow (YELLOW) Urine Appearance Clear (CLEAR,HAZY) Urine pH 7.0 (5.0-8.0) Urine Specific Guin <1.005 (1.003-1.035) Urine Protein Negativemg/dL (NEG,TRACE) Urine Glucose (UA) Negativemg/dL (NEGATIVE) Urine Ketones 15mg/dL (NEGATIVE) Urine Occult Blood Negative (NEGATIVE) Urine Nitrite Negative (NEGATIVE) Urine Bilirubin Negative (NEGATIVE) Urine Urobilinogen Normalmg/dL (NORMAL) Urine Leukocyte Esterase Negative (NEGATIVE) Urine RBC 0-2/hpf (0-2) Urine WBC 0-5/hpf (0-5) Urine Epithelial Cells Occasional/hpf (NONE-MOD) Urine Crystals None seen (NONE SEEN) Urine Bacteria Few/hpf (NONE-FEW) Urine Hyaline Casts None/lpf (NONE) Urine Granular Casts None seen (NONE SEEN) Urine Waxy Casts None seen (NONE SEEN) Urine Red Blood Cell Casts None seen (NONE SEEN) Urine White Blood Cell Casts None seen (NONE SEEN) Urine Mucus None seen (None Seen) Urine Trichomonas None seen (NONE SEEN) Urine Yeast None (NONE SEEN) Urinalysis Comment None Urine Culture Reflexed Not indicated White Blood Count 6.8th/mm3 (3.8-10.1) Red Blood Count 4.87mil/mm3 (4.40-5.80) Hemoglobin 15.5g/dL (13.8-17.2) Hematocrit 45.7% (41.0-50.0) Mean Corpuscular Volume 93.8fL (81-100) Mean Corpuscular Hemoglobin 31.8pg (27.0-35.0) Mean Corpuscular Hemoglobin Concent 33.9% (32.0-37.0) Red Cell Distribution Width 13.9% (12.3-15.4) Platelet Count 331bil/L (150-400) Neutrophils (%) (Auto) 63.2% (40-74) Lymphocytes (%) (Auto) 22.6% (14-46) Monocytes (%) (Auto) 10.8% (4-12) Eosinophils (%) (Auto) 2.5% (0-5) Basophils (%) (Auto) 0.6% (0-3) Hemoglobin A1c 5.6% (4.8-5.6) Triglycerides Level 90mg/dL (0-149) Cholesterol Level 178mg/dL (100-199) LDL Cholesterol, Calculated 117.000mg/dL (0-99) VLDL Cholesterol 18.000mg/dL HDL Cholesterol 43mg/dL (>39) Cholesterol/HDL Ratio 4.14 (0.0-4.4) Sodium Level 137mEq/L (134-144) Potassium Level 4.0mEq/L (3.5-5.2) Chloride Level 101mEq/L (97-108) Carbon Dioxide Level 22mmol/L (18-29) Blood Urea Nitrogen 12mg/dL (8-27) Creatinine 0.59mg/dL (0.76-1.27) Estimat Glomerular Filtration Rate 147mL/min (>59) Glucose Level 97mg/dL (60-99) Calcium Level 8.6mg/dL (8.5-10.1) Total Bilirubin 0.5mg/dL (0.0-1.2) Aspartate Amino Transf (AST/SGOT) 16U/L (0-50) Alanine Aminotransferase (ALT/SGPT) 9U/L (0-44) Alkaline Phosphatase 61U/L (25-160) Total Protein 6.6g/dL (6.4-8.4) Albumin 3.7g/dL (3.4-5.0) Test 11/09/16 08:40 Lyme Disease Screen IgG & IgM Ab <0.91ISR (0.00-0.90) Lyme Disease IgM Ab Quantitation <0.80index (0.00-0.79) Microbiology Results None Discharge Medications Discharge Medications Atorvastatin Calcium (Atorvastatin Calcium) 10 Mg Tablet 10 MG PO HS Prescribed by: MONISHA ANDRADE DO Budesonide/Formoterol 160-4.5 mcg Inh (Symbicort 160-4.5 mcg Inh) 60 Puff/6.9 Gm Inhaler 2 PUFF INHALATION BID Prescribed by: DARA PARR DO Clindamycin (Clindamycin) 300 Mg Capsule 300 MG PO tid x 10 days (Reported) Digoxin (Digoxin) 250 Mcg Tablet 250 MCG PO DAILY (Reported) Lisinopril (Lisinopril) 2.5 Mg Tablet 2.5 MG PO DAILY Prescribed by: MOINSHA ANDRADE DO Metoprolol Succinate ER (Metoprolol Succinate ER) 25 Mg Tab.er.24h 25 MG PO DAILY (Reported) Potassium Chloride (Potassium Chloride) 10 Meq Capsule.er 10 MEQ PO DAILY ( Reported) TAKE WITH FOOD Tiotropium Clem[place] (Spiriva) 18 Mcg Cap.w.dev 18 MCG IH DAILY (Reported) As needed Albuterol Sulfate (Ventolin HFA Inhaler) 200 Puff/18 Gm Inhaler 2 PUFF INH Q4 PRN PRN For Shortness of Breath (Reported) Levalbuterol HCl (Xopenex Concentrate) 1.25 Mg/0.5 Ml Vial.neb 1.25 MG IH QID PRN PRN For Shortness of Breath (Reported) Additional med instructions - take medications as prescribed Followup Plan Discharge Diet: No restrictions Discharge Activity: No restrictions Patient Instructions - follow up with your pcp as needed - bring discharge information with you to the solar sales estimator Time spent Greater than 30 minutes was spent in preparation of discharge with greater than 50% of that time dedicated to patient counseling and coordination of care. . copies to: Geovanny Jimenez Robert W MD Dec 10, 2016 08:28
== END 2016-11-09 10:10 | disposition home or self-care (01) ==
LOC: SED 14:47 → MOC 20:49
PROVIDERS: ADMIT Psychiatry & Neurology Psychiatry; ATTEND Internal Medicine
DX: G45.9 Transient cerebral ischemic attack, unspecified (principal); J45.909 Unspecified asthma, uncomplicated; F17.210 Nicotine dependence, cigarettes, uncomplicated; I10 Essential (primary) hypertension; Z95.810 Presence of automatic (implantable) cardiac defibrillator; I25.5 Ischemic cardiomyopathy; Z98.818 Other dental procedure status; Z86.74 Personal history of sudden cardiac arrest; Z79.82 Long term (current) use of aspirin; F31.9 Bipolar disorder, unspecified
CPT/HCPCS: 36415; 70450; 70496; 70498; 80048; 80053; 80061; 80162; 80178; 81000; 83036; 84484; 85025; 85610; 85730; 86618; 92610; 93005; 94640; 97161; 97165; 99285; C8929; G0378; J7613; J7620; Q9967